=== PATIENT | male | born 1930 | race Caucasian/White ===

== ENCOUNTER 2020-04-26 06:23 | Emergency (ER) | payer MEDICARE ==
[~2020-04-26] VITALS: Ht 167.6 cm; Wt 82.7 kg
[2020-04-26] MEDS ORDERED: NITROGLYCERIN 2% OINT 1 GM *U/D* PKT As Ordered ONE ×2 (06:55→08:25)
[2020-04-26 06:57] LABS: BASO % 0.4 % (0.0-1.0); EOS % 0.4 % (0.0-3.0); HEMATOCRIT 42.4 % (42.0-52.0); HEMOGLOBIN 13.8 g/dl (13.5-17.5); LYMPH # 1.2 10^3/uL (1.5-5.0); LYMPH % 14.7 % (24.0-44.0); MEAN CORPUSCULAR HEMOGLOBIN 27.5 pg (27.0-33.0); MEAN CORPUSCULAR HGB CONC 32.5 g/dl (32.0-36.5); MEAN CORPUSCULAR VOLUME 84.6 fl (80.0-96.0); MONO # 0.5 10^3/uL (0.0-0.8); MONO % 6.3 % (0.0-5.0); NEUTROPHILS # 6.2 10^3/uL (1.5-8.5); NEUTROPHILS % 77.8 % (36.0-66.0); PLATELET COUNT, AUTOMATED 193 10^3/uL (150-450); RED BLOOD COUNT 5.01 10^6/uL (4.30-6.10); WHITE BLOOD COUNT 7.9 10^3/uL (4.0-10.0)
[2020-04-26] MEDS ORDERED: NITROGLYCERIN 2% OINT 1 GM *U/D* PKT TOP ONE ×3 (07:00→13:30)
[2020-04-26] MEDS ORDERED: XARE2.5T PO (07:08)
[2020-04-26] MEDS ORDERED: ISOS30TAB PO (07:08)
[2020-04-26] MEDS ORDERED: ATEN50TA2 PO ×2 (07:08→07:12)
[2020-04-26] MEDS ORDERED: EZET10TA21 PO (07:12)
[2020-04-26] MEDS ORDERED: FLOM0.4C39 PO (07:12)
[2020-04-26] MEDS ORDERED: PANT40TA3 PO (07:12)
[2020-04-26] MEDS ORDERED: AMLO25TA PO (07:12)
[2020-04-26] MEDS ORDERED: ASPI81TA85 PO (07:13)
[2020-04-26 07:14] LABS: INR 1.22; PROTHROMBIN TIME 15.1 SECONDS (11.8-14.0)
[2020-04-26 07:15] LABS: PARTIAL THROMBOPLASTIN TIME 29.9 SECONDS (25.0-38.4)
[2020-04-26] MEDS ORDERED: HEPARIN DRIP 25,000 UNITS in IV 1 EA IV SCH (07:29)
[2020-04-26] MEDS ORDERED: CLOPIDOGREL 300 MG TAB (PLAVIX) PO ONE (07:45)
[2020-04-26] MEDS ORDERED: METOPROLOL TART 25 MG TABLET PO ONE ×2 (08:00→09:30)
--- NOTE | 2020-04-26 10:15 | REP ---
CHEST PORTABLE: AP portable view of the chest is performed. There are no prior studies for comparison. There is mild cardiomegaly. There is mild vascular congestion. There are increased interstitial markings bilaterally which may represent mild interstitial edema or fibrosis. Mediastinal silhouette is unremarkable. Multiple sternal wires and mediastinal clips are present. Electronically Signed by Deon Taveras MD 04/26/2020 11:18 P
[2020-04-26] MEDS ORDERED: FUROSEMIDE 40MG/4ML VIAL (J1940) IV ONE (12:00)
[2020-04-26 13:31] VITALS: BP 205/89
[2020-04-26 13:40] VITALS: BP 182/86
--- NOTE | 2020-04-26 16:03 | REP ---
REASON: Dizziness. COMPARISON: None. TECHNIQUE: 4.5 mm contiguous transaxial sections were obtained from the skull base to the cerebral convexities with thin cuts through the posterior fossa without the administration of intravenous contrast. FINDINGS: The ventricles and sulci are consistent with the patient's age. There are no extra-axial fluid collections. There is no mass effect. The deep cerebral white matter is consistent with the patient's age. The orbital and petrous structures, cerebellopontine angles, and posterior fossa are unremarkable. The sella turcica, cavernous, and paracavernous structures are essentially unremarkable. The visualized portions of the paranasal sinuses and mastoid air cells are clear. Images of the skull base show no gross abnormality. IMPRESSION: Essentially unremarkable CT examination of the brain. 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 Electronically Signed by Brant Ridley DO 04/26/2020 04:46 P
--- NOTE | 2020-04-26 17:45 | ECGEPIP ---
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
--- NOTE | 2020-04-26 17:48 | ECGEPIP ---
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
== END 2020-04-26 13:45 | disposition short-term general hospital (02) ==
LOC: M ED 06:23
DX: I21.4 Non-ST elevation (NSTEMI) myocardial infarction (principal); I45.10 Unspecified right bundle-branch block; I44.0 Atrioventricular block, first degree; I44.4 Left anterior fascicular block; I25.10 Atherosclerotic heart disease of native coronary artery without angina pectoris; I10 Essential (primary) hypertension; E78.5 Hyperlipidemia, unspecified; K21.9 Gastro-esophageal reflux disease without esophagitis; Z95.1 Presence of aortocoronary bypass graft; Z95.5 Presence of coronary angioplasty implant and graft; Z87.891 Personal history of nicotine dependence; I51.7 Cardiomegaly; Z79.82 Long term (current) use of aspirin; Z79.01 Long term (current) use of anticoagulants; Z79.899 Other long term (current) drug therapy
CPT/HCPCS: 70450; 71045; 80047; 83880; 84484; 85025; 85610; 85730; 93005; 93041; 94760; 96374; 99285; J1940; U0002